=== PATIENT | female | born 1940 | race Caucasian/White ===

== ENCOUNTER 2021-04-14 12:59 | Emergency (ER) | payer MEDICARE, MEDICAID ==
[~2021-04-14] VITALS: Ht 167.6 cm; Wt 72.6 kg
--- NOTE | 2021-04-14 14:00 | EKG ---
[place] [address] ELECTROCARDIOGRAM REPORT Name: ANA COX Room: [facility] M.R.#: [id number] Admission: Attend Phys: Discharge: Date of : 44 Date of Service: 04/14/21 1325 Report #: [id number] THIS REPORT FOR: //name// [facility] ED Test Date: 2021-04-14 Test Time: 13:25:51 Pat Name: ANA COX Department: Room: Gender: F Soa Architect: [facility] : 1940 Requested By: Isaac Wren Order Number: [id number] MD: Neptali Leo Measurements Intervals [place] Rate: 85 P: 42 RI: 150 QRS: 7 QRSD: 89 T: 20 QT: 361 QTc: 430 Interpretive Statements Sinus rhythm Borderline low voltage, extremity leads Baseline wander in lead(s) II,aVR No previous ECG available for comparison Electronically Signed On 04-14-2021 13:59:54 CDT by Neptali Leo [email or web address] <ELECTRONICALLY SIGNED> By: Neptali Leo MD, [facility] 04/14/21 1359 1325 1325 Neptali Leo MD, [facility] /EPI
[2021-04-14 14:07] LABS: ABSOLUTE EOSINOPHILS 0.1 thou/uL (0.0-0.7); ABSOLUTE LYMPHOCYTES 1.8 thou/uL (0.8-5.3); ABSOLUTE MONOCYTES 0.5 thou/uL (0.0-1.2); ABSOLUTE NEUTROPHILS 3.8 thou/uL (1.6-8.1); BASOPHILS 0.6 %; EOSINOPHILS 2.2 %; HEMATOCRIT 36.8 % (37.0-47.0); HEMOGLOBIN 12.1 gm/dL (12.0-15.0); LYMPHOCYTES 28.9 %; MCH 29.6 pg (26.0-34.0); MCHC 32.9 g/dL (28.0-37.0); MCV 89.9 fL (80.0-100.0); MONOCYTES 7.3 %; MPV 7.4 fl. (7.2-11.1); NUCLEATED RBCS 0 /100WBC; PLATELET COUNT* 276 thou/uL (150-400); RBC 4.09 mil/uL (4.20-5.00); RDW-CV 14.1 % (10.5-14.5); WBC 6.3 thou/uL (4.0-11.0)
[2021-04-14 14:10] LABS: CALCIUM 9.2 mg/dL (8.5-10.1); POTASSIUM 4.2 mmol/L (3.5-5.1)
[2021-04-14 14:15] LABS: ALBUMIN 3.6 g/dL (3.4-5.0); TOTAL BILIRUBIN 0.3 mg/dL (<0.1-1.0); TOTAL PROTEIN 7.5 g/dL (6.4-8.2)
[2021-04-14 14:49] VITALS: BP 142/60
== END 2021-04-14 14:50 | disposition home or self-care (01) ==
LOC: M.ERS 12:59
PROVIDERS: Family Medicine
DX: R51.9 Headache, unspecified (principal); I10 Essential (primary) hypertension; Z90.710 Acquired absence of both cervix and uterus; Z91.041 Radiographic dye allergy status